=== PATIENT | female | born 1975 | race Two or more races ===

== ENCOUNTER 2017-07-12 18:31 | Emergency (ER) | payer OTHER ==
[~2017-07-12] VITALS: Ht 160 cm; Wt 59.0 kg
[2017-07-12] MEDS ORDERED: ONDANSETRON HCL 4 MG/2 ML VIAL IM ONE (20:00)
[2017-07-12] MEDS ORDERED: HYDROcodone-ACET 10/325MG TAB PO ONE (20:00)
[2017-07-12] MEDS ORDERED: KETOROLAC TROMETH 60MG/2ML VIAL IM ONE (20:00)
[2017-07-12] MEDS ORDERED: LIDOCAINE 1% HCL (LOCAL ANESTH.) INJ 20ML MDV IN ONE (20:30)
[2017-07-12] MEDS ORDERED: ONDANSETRON HCL 4 MG/2 ML VIAL IV ONE (20:30)
[2017-07-12] MEDS ORDERED: TETANUS-DIPTH-ACEL PERTUSSIS 0.5ML SYRG IM ONE (20:30)
[2017-07-12] MEDS ORDERED: cefTRIAXone 1GM/50ML D5W 50 ML IV ONE (20:30)
[2017-07-12] MEDS ORDERED: HYDROmorphone HCL 2 MG/ML VL IV ONE (20:30)
[2017-07-12 22:05] VITALS: BP 115/75
== END 2017-07-12 22:05 | disposition home or self-care (01) ==
LOC: ER 18:31 → EDBD 18:31 → ER 22:05
DX: S01.511A Laceration without foreign body of lip, initial encounter (principal); S81.831A Puncture wound without foreign body, right lower leg, initial encounter; S20.211A Contusion of right front wall of thorax, initial encounter; V43.12XA Car passenger injured in collision with other type car in nontraffic accident, initial encounter; Y93.89 Activity, other specified; Y92.89 Other specified places as the place of occurrence of the external cause; Y99.8 Other external cause status
CPT/HCPCS: 12001; 12013; 70450; 71010; 73130; 73590; 90471; 90715; 96365; 96372; 96375; 99284; J0696; J1170; J1885; J2405